=== PATIENT | male | born 1955 | race Caucasian/White ===

== ENCOUNTER 2024-03-02 06:24 | Day surgery (SDC) | payer MEDICARE ==
[2024-02-27 10:03] VITALS: BMI 21.9
[2024-03-02 07:49] LABS: Anion Gap 12 mmol/L (10-20); BUN (Urea Nitrogen) 23 mg/dL (8.4-25.7); Calc. Creatinine Clearance 88 mL/min (70-130); Carbon Dioxide 23 mmol/L (23-31); Chloride 112 mmol/L (98-107); Estimated GFR 94; Glucose 93 mg/dL (80-115); Sodium 143 mmol/L (136-145)
[2024-03-02] MEDS ORDERED: Lidocaine 1% PF 5 ML VIAL ONE (08:45)
[2024-03-02] MEDS ORDERED: PROPOFOL 200 MG/20 ML VIAL ONE (08:45)
== END 2024-03-02 10:32 | disposition home or self-care (01) ==
LOC: SDC 06:24
PROVIDERS: ATTEND Internal Medicine Cardiovascular Disease
PROC: 5A2204Z Restoration of Cardiac Rhythm, Single (ICD-10-PCS; principal; 2024-03-02)
PROC: B246ZZ4 Ultrasonography of Right and Left Heart, Transesophageal (ICD-10-PCS; 2024-03-02)
DX: I48.92 Unspecified atrial flutter (principal); I48.0 Paroxysmal atrial fibrillation; I26.99 Other pulmonary embolism without acute cor pulmonale; I08.1 Rheumatic disorders of both mitral and tricuspid valves; Z85.038 Personal history of other malignant neoplasm of large intestine; Z90.81 Acquired absence of spleen; Z90.49 Acquired absence of other specified parts of digestive tract; Z79.899 Other long term (current) drug therapy; Z87.891 Personal history of nicotine dependence
CPT/HCPCS: 80048; 92960; 93005; 93312; J2704; 93010

== ENCOUNTER 2024-08-02 11:05 | Outpatient (CLI) | payer MEDICARE | END 2024-08-02 11:06 | disposition home or self-care (01) | LOC: SCSRAD 11:05 | PROVIDERS: ATTEND Family Medicine | DX: M89.8X1 Other specified disorders of bone, shoulder (principal) ==

== ENCOUNTER 2025-05-21 13:31 | Outpatient (CLI) | payer MEDICARE | END 2025-05-21 13:32 | disposition home or self-care (01) | LOC: SCSRAD 13:31 | DX: R06.09 Other forms of dyspnea (principal); R91.1 Solitary pulmonary nodule | CPT/HCPCS: 71046 ==

== ENCOUNTER 2025-05-31 11:01 | Outpatient (CLI) | payer MEDICARE | END 2025-05-31 11:02 | disposition home or self-care (01) | LOC: SCSRAD 11:01 | PROVIDERS: ATTEND Family Medicine | DX: S09.93XA Unspecified injury of face, initial encounter (principal); S02.31XA Fracture of orbital floor, right side, initial encounter for closed fracture; J34.89 Other specified disorders of nose and nasal sinuses | CPT/HCPCS: 70150; 70200 ==